=== PATIENT | female | born 1970 | race American Indian/Alaskan Native ===

== ENCOUNTER → 2024-01-17 | Outpatient (REF) | payer OTHER, SELFPAY | LOC: DHSLP | PROVIDERS: ATTENDING PHYSICIAN Family Medicine | DX: G47.33 Obstructive sleep apnea (adult) (pediatric) (principal); R09.02 Hypoxemia | CPT/HCPCS: 95810 ==

== ENCOUNTER → 2024-12-16 14:55 | Outpatient (REF) | payer OTHER, SELFPAY | LOC: RAD 14:55 | PROVIDERS: ATTENDING PHYSICIAN Surgery Vascular Surgery; FAMILY PHYSICIAN Family Medicine | DX: I73.9 Peripheral vascular disease, unspecified (principal) | CPT/HCPCS: 93922 ==

== ENCOUNTER 2025-07-06 15:18 | Emergency (ER) | payer OTHER, SELFPAY ==
[2025-07-06 15:21] VITALS: BP 156/99
[2025-07-06 16:30] VITALS: BMI 33.5
--- NOTE | 2025-07-06 17:26 | ED.MUSCINJ ---
HPI-Injury
General
Chief Complaint: Musculo-Skeletal Complaint
Source: patient
Exam Limitations: none
Time Seen by Provider: 07/06/25 15:54
Nursing documentation reviewed up to this point in time: agreed with
History of Present Illness-Injury
Is this injury a work related problem?: No
Is pt an associate of [facility]/[place]?: No
Initial Injury comments:
Patient to the emergency department with complaint of left lateral foot pain. Patient states she rolled her foot 2 days ago. Able to ambulate but with pain. Brought self to the emergency department for evaluation.
Past History
Past History
ED Past Medical History: HTN, Hypercholesterolemia and IDDM
Review of Systems
Review of Systems
Allergies reviewed?: Yes
All Other Systems: ROS reviewed and negative except as documented in HPI and ROS
Constitutional: Reports no symptoms
EENT: Reports no symptoms
Respiratory: Reports no symptoms
Cardiac: Reports no symptoms
ABD/GI: Reports no symptoms
: Reports no symptoms
Musculoskeletal: Reports joint pain (Pain to left lateral foot)
Skin: Reports no symptoms
Neurological: Reports no symptoms
Psychiatric: Reports no symptoms
Musculoskeletal Injury Exam
Musculoskeletal Injury Exam
Left Lateral Foot:
Pain with Movement?: Moderate
Tender to palpation?: Moderate
Soft tissue swelling?: None
External deformity and angulation?: None
Joint effusion?: None
Contusion?: None
Hematoma-local bleeding into tissue?: None
Strain- Sprain- Tear (Connective tissue injury)?: Moderate
Crepitus with movement?: No
Joint instability?: No
Malalignment/deformity?: No
Range of motion: Full
Distal skin color and temperature: normal-warm & good color
Capillary Refill: normal
Normal distal neurovascular exam?: Yes
Peripheral Pulses: posterior tibial (left): 3+ and dorsalis pedis (left): 3+
Phy Exam
General Physical Exam
General Presentation: well appearing and no apparent distress
General age: appears stated age
General Skin: warm and dry
General Habitus: normal
General Mental: alert
Musculoskeletal Exam
Musculoskeletal Exam: full ROM, neuro vasc intact and other (Achilles intact, no tenderness base of 5th, proximal tib-fib)
Skin Exam
Skin Exam: normal color, warm/dry and no rash
Psychiatric Exam
Psychiatric Exam: normal mood/affect
Injury Course
Orders/Labs/Results
Orders:
Orders
07/06/25 16:25
Foot, Left 3 View [CR Foot - Left Min 3 Views] Urgent
Comment:
Reason For Exam: pain
07/06/25 17:23
Ortho Boot Left- Treatment ONCE
Short or tall?: Short
*Radiology
Radiology exam reviewed: radiology read reviewed
*Pulse Oximetry
SaO2: 98
Oxygen Mode of Delivery: Room air
Patient hypoxic: no
*Critical Care Note
Total Time (30-74mins, 75-104mins- exclusive of procedures): Not Applicable
Update Note
Update Note:
Patient to emergency department for evaluation of left lateral foot pain. She believes that she rolled her foot approximately 2 days ago. No swelling or bruising on exam. Left foot neurovascularly intact. X-ray reviewed, no evidence of fracture
noted on x-ray. She was placed in a short orthopedic boot and will be discharged home. Instructed to follow-up with orthopedics if her symptoms are not improving over the course of this week. She was given instructions on signs and symptoms to
return to the emergency department and she is agreeable to this plan.
ED Attending Note
-
Portions of this chart may have been created with voice recognition software.� Occasional wrong word or��sound alike� substitutions may have occurred due to the inherent limitations of voice recognition software.
Discharge Plan
Departure
Patient Disposition: Home (Routine Discharge)
Date of Disposition: 07/06/25
Time of Disposition: 17:24
Patient with high blood pressure during this ER visit?: No
Condition: Good
Covid-19: Not Applicable
Discharge Problem:
Acute foot pain
Instructions: Muscle and Bone Pain (DC), Sprain (DC), Using Cold for Pain
Prescriptions:
No Action
atorvastatin 20 mg tablet
20 mg PO QPM
aspirin 81 mg Tablet,Delayed Release (Dr/Ec)
81 mg PO DAILY
acetaminophen 650 mg Tablet Extended Release
650 mg PO HS
metformin 1,000 mg tablet
1,000 mg PO BID@0800,1700
lisinopril 30 mg tablet
30 mg PO DAILY
albuterol sulfate 90 mcg/actuation HFA aerosol inhaler
2 puff INHALATION R Q4 PRN (Reason: sob/wheezing)
insulin aspart U-100 100 unit/mL (3 mL) insulin pen
20 unit SC AC
duloxetine 30 mg capsule,delayed release(DR/EC)
60 mg PO DAILY
pregabalin 100 mg capsule
100 mg PO TID
Patient Comments:
11/15/2022: last filled 10/26/22, 90 tabs for 30 days from [id number]
Steglatro 15 mg tablet
15 mg PO DAILY
amoxicillin-pot clavulanate 875-125 mg tablet
1 tab PO Q12H Qty: 23 0RF
insulin glargine [Lantus Solostar U-100 Insulin] 100 unit/mL (3 mL) insulin pen
50 unit SC HS Qty: 0 0RF
doxycycline hyclate 100 mg capsule
100 mg PO BID Qty: 10 0RF
Referrals:
Keshav Castro MD [Active, Orthopedics] - Call in 1-3 days for appt
Lynne Steward MD [Family Provider, Family Practice]
Interventions
Interventions:
*Risk Screen - Suicide Last Done: 07/06/25 15:20
*General Assessment Last Done: 07/06/25 16:30
*Neglect/Abuse Screening Last Done: 07/06/25 15:20
*ED- Fall Risk Assessment Last Done: 07/06/25 16:30
*ED COVID-19 Vaccine History Last Done: 07/06/25 16:30
*ED Influenza Vaccine History Last Done: 07/06/25 16:30
ED-Musculoskeletal Assessment Last Done: 07/06/25 17:00
Discharge Date and Time
Print Language: [id number]
[2025-07-06 17:40] VITALS: BP 142/85
== END 2025-07-06 18:25 | disposition home or self-care (01) ==
LOC: EMR 15:18
PROVIDERS: EMERGENCY PHYSICIAN Student in an Organized Health Care Education/Training Program; FAMILY PHYSICIAN Family Medicine
DX: M25.572 Pain in left ankle and joints of left foot (principal); X50.1XXA Overexertion from prolonged static or awkward postures, initial encounter; E10.9 Type 1 diabetes mellitus without complications; I10 Essential (primary) hypertension; E78.00 Pure hypercholesterolemia, unspecified; Z79.4 Long term (current) use of insulin; Z79.84 Long term (current) use of oral hypoglycemic drugs; Z79.82 Long term (current) use of aspirin
CPT/HCPCS: 99283; 73630